=== PATIENT | female | born 1985 | race Caucasian/White ===

== ENCOUNTER 2023-04-05 17:49 | Emergency (ER) | payer SELFPAY ==
[2023-04-05 17:50] VITALS: BP 110/77; PULSE 100; RESP 20; TEMP 37; O2SAT 94; BMI 27.2
--- NOTE | 2023-04-05 17:51 | EXP.UTC ---
Discharge Plan Disposition Patient Disposition: Home, Self-Care Condition: Good Prescriptions Prescriptions: New benzonatate 200 mg capsule 200 mg PO TID PRN (Reason: cough) Qty: 30 0RF prednisone [prednisone] 20 mg tablet 20 mg PO BID 5 Days Qty: 10 0RF albuterol sulfate [Ventolin HFA] 90 mcg/actuation HFA aerosol inhaler 2 puffs inhalation QIDP PRN (Reason: Wheezing) 30 Days Qty: 1 0RF cefdinir 300 mg capsule 300 mg PO BID 20 Days Qty: 20 0RF Referrals Follow up/Referrals: Provider,Referral, MD [Primary Care Provider] - See instructions Clinical Impressions Clinical Impression: Bronchitis Instructions Patient Instructions: DI for Acute Bronchitis Discharge ED Provider: Mary Velasquez [facility] General Stated complaint: cough,SOA Time Seen by Provider: 04/05/23 18:35 History of Present Illness Provider Complaint: Cough, congestion, shortness of breath X 1 week. Body aches, sweats, chills. Recently quit smoking. Nausea but no vomiting. Has had diarrhea. Onset (ago): week(s) (1) Location: chest Relieving factors: none Exacerbating factors: none Associated symptoms: cough, fever/chills and nausea/vomiting Treatments prior to arrival: none Related Data Previous Rx's Medication Instructions Recorded albuterol sulfate 90 mcg/actuation 2 puffs inhalation QIDP PRN 04/05/23 aerosol inhaler (Ventolin HFA) Wheezing 30 days #1 ea benzonatate 200 mg capsule 200 mg PO TID PRN cough #30 caps 04/05/23 cefdinir 300 mg capsule 300 mg PO BID 20 days #20 caps 04/05/23 prednisone 20 mg tablet 20 mg PO BID 5 days #10 tabs 04/05/23 Allergies Allergy/AdvReac Type Severity Reaction Status Date / Time doxycycline Allergy Verified 04/05/23 18:27 [facility] Disclaimer: The information contained in this section may have been updated after the patient was seen, as this information can be updated by other users. Social History Smoking Status: Former smoker alcohol intake: never current occupational status: employed Travel in the last 8 weeks: None ROS Obtained: Yes All systems reviewed & no additional complaints except as documented Respiratory Respiratory: Reports chest congestion and Reports cough Physical Exam General General appearance: alert and in no apparent distress Head Head exam: atraumatic, normocephalic and normal inspection Eye Eye exam: Present normal appearance, PERRL and EOMI ENT ENT exam: Present normal exam, normal oropharynx, mucous membranes moist, TM's normal bilaterally and normal external ear exam Neck Neck exam: Present normal inspection, full ROM and trachea midline; Absent meningismus or lymphadenopathy Chest Chest inspection: Present normal inspection and symmetric chest wall rise; Absent tenderness Respiratory Respiratory exam: Present normal lung sounds bilaterally and wheezes Cardiovascular Cardiovascular exam: Present regular rate and normal rhythm; Absent JVD Abdominal Exam Abdominal exam: Present soft and normal bowel sounds; Absent distention, tenderness or guarding Extremities Exam Extremities exam: Present normal inspection, full ROM and normal capillary refill; Absent calf tenderness Back Exam Back exam: Present normal inspection; Absent tenderness Neurological Exam Neurological exam: Present alert and oriented X3 Psychiatric Psychiatric exam: Present normal affect and normal mood Skin Skin exam: Present warm, dry, intact and normal color Lymphatic Lymphatic Findings: no adenopathy Medical Decision Making Romulo Inquiry Pt receiving controlled substance: No
[2023-04-05 18:45] VITALS: BP 110/77; PULSE 100; RESP 20; TEMP 37; O2SAT 94
== END 2023-04-05 18:46 | disposition home or self-care (01) ==
PROVIDERS: Emergency Provider Physician Assistant
DX: J20.9 Acute bronchitis, unspecified (principal); R06.02 Shortness of breath; Z87.891 Personal history of nicotine dependence
CPT/HCPCS: 99204; 99212; G0463